=== PATIENT | female | born 2000 | race American Indian/Alaskan Native ===

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

== ENCOUNTER 2020-12-01 10:04 | Day surgery (SDC) | payer MEDICAID ==
[~2020-12-01 10:04] MED LIST: SODIUM CHLORIDE 0.9% 1000 ML 1,000 ML IV SCH; WATER FOR IRRIG STERILE 250 ML BOTTLE IR ONE
[2020-12-01] MEDS ORDERED: LIDOCAINE MPF (2%) 20 MG/1 ML VIAL 5 ML ONE (11:35)
[2020-12-01] MEDS ORDERED: ONDANSETRON 4 MG/2 ML INJ ONE (11:35)
[2020-12-01] MEDS ORDERED: propofoL 200 MG/20 ML VIAL IV ONE (11:35)
[2020-12-01] MEDS ORDERED: fentaNYL 100 MCG/2 ML INJ ONE (11:35)
--- NOTE | 2020-12-01 11:55 | Procedure Note ---
Date of procedure: 12/01/20 Pre-op diagnosis: Epigastric Pain Post-op diagnosis: other (Mild to Moderate Erosive Esophagitis/ Gastritis/R/O Celiac Disease/ No Peptic Ulcer Disease noted) Procedure: EGD with Biopsy Anesthesia: MAC Surgeon: KARSON SALGADO Estimated blood loss: minimal Pathology: list Specimen disposition: to lab Condition: stable Disposition: same day (Treat with PPI, prn Bentyl and OTC Probiotic. Avoid aspirin, NSAID for 5 days; otherwise resume home medication and F/U in 1 to 2 weeks ([phone]).)
--- NOTE | 2020-12-01 12:12 | Anesthesia Consultation ---
Anesthesia Consult and Med Hx - Airway Anesthetic Teeth Evaluation: Good ROM Head & Neck: Adequate Mental/Hyoid Distance: Adequate Mallampati Class: Class I Intubation Access Assessment: Good - Pre-Operative Health Status ASA Pre-Surgery Classification: ASA3 Proposed Anesthetic Plan: MAC - Pulmonary Hx Smoking: No Hx Asthma: Yes (no recent inhaler use) Hx Respiratory Symptoms: No - Cardiovascular System Hx Hypertension: Yes (did not take lisinopril this morning) Hx Heart Attack/AMI: No - Central Nervous System CVA: No - Endocrine Hx Renal Disease: No Hx Liver Disease: No Hx Insulin Dependent Diabetes: No Hx Non-Insulin Dependent Diabetes: No Hx Thyroid Disease: No - Other Systems Hx Obesity: Yes (BMI 62)
--- NOTE | 2020-12-01 12:13 | Anesthesia Day of Surgery ---
Anesthesia Day of Surgery - Day of Surgery Patient Examined: Yes Patient H&P Reviewed: Yes Patient is NPO: Yes
[2020-12-01] MEDS ORDERED: hydrALAZINE 20 MG/1 ML INJ IV PRN (12:30)
[2020-12-01 12:43] VITALS: BP 147/78
--- NOTE | 2020-12-01 12:43 | Operative Report ---
DATE OF SURGERY: 12/01/2020 PROCEDURE PERFORMED: Esophagogastroduodenoscopy with biopsy. INDICATIONS: This is a 20-year-old -[place] female who is morbidly obese, has been having epigastric pain. EGD was done to make sure there was not any associated peptic ulcer disease. DESCRIPTION OF PROCEDURE: Procedure was done after getting informed consent with MAC anesthesia. The instrument was passed through the hypopharynx into the esophagus, which showed some [id number] erosive esophagitis. Stomach showed gastritis, but no ulcers were noted in the straight or the retroverted view. Pylorus is patent. Duodenum in the first and the second portion appeared normal. Biopsy was done from the second part of the duodenum to rule out for possible celiac disease. Additional biopsy was done from the gastric antrum, gastric body and angular incisura to rule out for H. pylori and atrophic gastritis. In addition, biopsy was also done from the distal esophagus to assess for the severity of moderate erosive esophagitis. There was minimal bleeding associated with the procedure. No complications associated with the procedure. ASSESSMENT: Epigastric pain. No peptic ulcer disease noted. Enrd-ma-[id number] erosive esophagitis, gastritis, rule out celiac disease. PLAN: Treat the patient with PPI, p.r.n. dose of Bentyl. Encouraged the patient to take probiotics. The patient will be asked to take Bentyl for the abdominal pain on a p.r.n. basis and to avoid aspirin and aspirin-related products for the next few days, otherwise resume home medication and follow up in the office in 1-2 weeks' time. Procedure was done in the GI lab with the assistance of the GI lab team, which included the GI nurse, the ophthalmic technician and with the assistance of anesthesia. TID: [id number] RECEIPT: [id number] IWONA/ALYX
--- NOTE | 2020-12-01 12:57 | Post Anesthesia Evaluation ---
- Post Anesthesia Evaluation Patient Participated: Yes Airway Patent: Yes Stable Respiratory Function: Yes Nausea/Vomiting: No Temp > 96.8F: Yes Pain Manageable: Yes Adequeate Hydration: Yes Anesthesia Complications: No
== END 2020-12-01 13:05 | disposition home or self-care (01) ==
LOC: GIO 10:04
DX: R10.13 Epigastric pain (principal); K21.00 Gastro-esophageal reflux disease with esophagitis, without bleeding; K29.50 Unspecified chronic gastritis without bleeding; K31.89 Other diseases of stomach and duodenum; I10 Essential (primary) hypertension; E66.01 Morbid (severe) obesity due to excess calories; J45.909 Unspecified asthma, uncomplicated; Z79.899 Other long term (current) drug therapy; Z98.890 Other specified postprocedural states; Z88.8 Allergy status to other drugs, medicaments and biological substances
CPT/HCPCS: 43239; 81025; 88305; 88342; J2405; J2704; J3010; J7030